=== PATIENT | male | born 1985 | race Caucasian/White ===

== ENCOUNTER 2019-02-14 23:22 | Emergency (ER) | payer SELFPAY ==
[~2019-02-14] VITALS: Ht 167.6 cm; Wt 70.8 kg
[2019-02-14 23:22] VITALS: BP 124/68
--- NOTE | 2019-02-14 23:29 | Emergency Room Report ---
History of Present Illness General Chief Complaint: To Be Triaged Source: Patient Present Illness HPI Is a 33-year-old male brought in by police for medical clearance. Patient was arrested for outstanding warrant. He said that he takes methadone and is in withdrawal. Denies any other complaint. Complaining of generalized pain. No nausea no vomiting but no fever or chills. Patient History Past Medical History: see triage record, old chart reviewed Past Surgical History: none Pertinent Family History: none Social History: Denies: smoking Immunizations: other Reviewed Nursing Documentation: PMH: Agreed; PSxH: Agreed Review of Systems Eye: Denies: eye pain, blurred vision ENT: Denies: ear pain, nose congestion, throat swelling Respiratory: Denies: cough, shortness of breath Cardiovascular: Denies: chest pain, palpitations Gastrointestinal: Denies: abdominal pain, diarrhea, nausea, vomiting Musculoskeletal: Denies: back pain, joint pain Skin: Denies: rash Neurological: Denies: headache, numbness Endocrine: Denies: increased thirst, increased urine Hematologic/Lymphatic: Denies: easy bruising All Other Systems: negative except mentioned in HPI Physical Exam Sp02 EP Interpretation: reviewed, normal General Appearance: well appearing, no apparent distress, alert Head: normocephalic, atraumatic Eyes: bilateral eye PERRL, bilateral eye EOMI ENT: hearing grossly normal, normal pharynx Neck: full range of motion, supple, no meningismus Respiratory: chest non-tender, lungs clear, normal breath sounds Cardiovascular #1: regular rate, rhythm, no murmur Gastrointestinal: normal bowel sounds, non tender, no mass, no organomegaly, no bruit, non-distended Musculoskeletal: back normal, gait/station normal, normal range of motion Psychiatric: mood/affect normal Skin: warm/dry Medical Decision Making Diagnostic Impression: Primary Impression: Examination, medicolegal Additional Impression: Methadone dependence ER Course Patient here for medical clearance. He said his it and withdrawal but she showed no evidence of withdrawal. Heart rate normal. He is comfortable. No nausea no vomiting. He is actually on the sleepy side. We'll discharge to police. Status: unchanged Disposition: D/C TO LAW ENFORCEMENT IN [facility] Condition: Stable Additional Instructions: Abstain from drugs and alcohol. Follow-up with your doctor in 7 days as needed. Return if worse. Usman Gonzáles MD Feb 14, 2019 23:29
[2019-02-14 23:31] VITALS: BP 124/87
== END 2019-02-15 00:11 ==
LOC: EMR 23:36
DX: F11.20 Opioid dependence, uncomplicated (principal); Z02.89 Encounter for other administrative examinations
CPT/HCPCS: 99282